=== PATIENT | male | born 1955 | race Caucasian/White ===

== ENCOUNTER 2018-11-10 13:09 | Day surgery (SDC) | payer MEDICARE ==
[2018-11-10] MEDS ORDERED: Marcaine 0.5% SDV 10 ML IJ ONE (13:10)
[2018-11-10] MEDS ORDERED: DIPRIVAN 200 MG/20 ML IV ONE (13:10)
[2018-11-10] MEDS ORDERED: Depo-Medrol 40 MG/ML IM ONE (13:10)
--- NOTE | 2018-11-10 16:11 | XRAY ---
Indication: Right shoulder injection. Intraoperative fluoroscopy was provided for 19 seconds. Single digital spot image submitted for interpretation demonstrates needle tip projecting just superior to the right humeral head. Small amount of contrast injected for needle tip placement. Correlate with intraoperative findings/report.
--- NOTE | 2018-11-10 16:26 | XRAY ---
19 seconds fluoroscopy time in surgery for right shoulder injection.
[2018-11-10] MEDS ORDERED: Lactated Ringers 1,000 ML IV ONE (17:04)
== END 2018-11-10 15:45 | disposition home or self-care (01) ==
LOC: SDC-PAIN 13:09
PROVIDERS: ATTEND Psychiatry & Neurology Pain Medicine
DX: M19.011 Primary osteoarthritis, right shoulder (principal); I10 Essential (primary) hypertension; J44.9 Chronic obstructive pulmonary disease, unspecified; G47.30 Sleep apnea, unspecified; K21.9 Gastro-esophageal reflux disease without esophagitis; D64.9 Anemia, unspecified; E78.00 Pure hypercholesterolemia, unspecified; I42.9 Cardiomyopathy, unspecified
CPT/HCPCS: 73030; 77002; J1030; J2704

== ENCOUNTER 2019-06-29 14:41 | Day surgery (SDC) | payer MEDICARE, OTHER ==
[2019-06-29] MEDS ORDERED: Depo-Medrol 40 MG/ML IM ONE (14:42)
[2019-06-29] MEDS ORDERED: Marcaine 0.5% SDV 10 ML IJ ONE (14:42)
[2019-06-29] MEDS ORDERED: Xylocaine 1% Vial 30 ML PF IJ ONE (14:42)
--- NOTE | 2019-06-29 16:41 | XRAY ---
Indication: Right knee injection. Intraoperative fluoroscopy was provided for 8 seconds. Single digital spot image submitted for interpretation demonstrates needle tip projecting over the right femur intercondylar notch. Small amount of contrast injected for needle tip placement. Correlate with intraoperative findings/report.
--- NOTE | 2019-06-29 16:44 | XRAY ---
8 seconds fluoroscopy time in surgery for right knee injection.
== END 2019-06-29 15:55 | disposition home or self-care (01) ==
LOC: SDC-PAIN 14:41
PROVIDERS: ATTEND Psychiatry & Neurology Pain Medicine
DX: M17.11 Unilateral primary osteoarthritis, right knee (principal); I10 Essential (primary) hypertension; J44.9 Chronic obstructive pulmonary disease, unspecified; G47.30 Sleep apnea, unspecified; K21.9 Gastro-esophageal reflux disease without esophagitis; D64.9 Anemia, unspecified; E78.00 Pure hypercholesterolemia, unspecified; I42.9 Cardiomyopathy, unspecified; Z79.899 Other long term (current) drug therapy
CPT/HCPCS: 20610; 73560; 77002; J1030; J2001